=== PATIENT | male | born 1990 | race American Indian/Alaskan Native ===

== ENCOUNTER 2021-03-05 23:05 | Emergency (ER) | payer SELFPAY ==
[2021-03-06 00:58] LABS: Bilirubin,Urine NEG (Negative); Blood,Urine NEG (Negative); Color,Urine Yellow (Yellow); Mucus,Urine FEW /HPF; Protein,Urine <15 mg/dL mg/dL (Negative)
[2021-03-06] MEDS ORDERED: PHENAZOPYRIDINE 200 MG TAB PO ONE (02:49)
[2021-03-06] MEDS ORDERED: LIDOCAINE-MPF (1%) 10 MG/1 ML VIAL 5 ML INFILTRATI ONE (02:49)
--- NOTE | 2021-03-06 03:32 | Emergency Department Report ---
ED Male HPI - General Chief complaint: Urogenital-Male Stated complaint: PENILE DISCHARGE Source: patient Mode of arrival: Ambulatory Limitations: No Limitations - History of Present Illness Initial comments: Patient is a 30-year-old -[place] male with no past medical history presented to the ED with complaint of acute onset persistent dysuria, urinary frequency and urgency, and penile discharge for the last 3 days after having unprotected sexual intercourse 5 days ago. Patient states that he has 2 sexual partners. Patient denies dizziness, syncope, fever, chills, abdominal pain, hematuria, testicular pain, low back pain, chest pain or shortness of breath and sore throat. MD Complaint: penile discharge, dysuria -: Sudden, days(s) (2) Location: penis Radiation: none Severity: moderate Severity scale (0 -10): 6 Quality: aching, burning, sharp Consistency: intermittent Improves with: none Worsens with: urination denies other symptoms, discharge, dysuria. denies: swelling, mass, rash, urinary retention, blood in urine - Related Data Sexually active: Yes (Multiple sexual partners with no protection) Previous Rx's Medication Instructions Recorded Last Taken Type Doxycycline Hyclate 100 mg PO Q12H #28 capsule 03/06/21 Unknown Rx Phenazopyridine [Pyridium] 100 mg PO TID #21 tab 03/06/21 Unknown Rx Allergies Allergy/AdvReac Type Severity Reaction Status Date / Time Sulfa (Sulfonamide Allergy Unknown Verified 03/05/21 23:12 Antibiotics) ED Review of Systems ROS: Stated complaint: PENILE DISCHARGE Other details as noted in HPI Constitutional: denies: chills, fever Eyes: denies: eye pain, eye discharge, vision change ENT: denies: ear pain, throat pain Respiratory: denies: cough, shortness of breath, wheezing Cardiovascular: denies: chest pain, palpitations Endocrine: no symptoms reported Gastrointestinal: denies: abdominal pain, nausea, diarrhea Genitourinary: urgency, dysuria, discharge Musculoskeletal: denies: back pain, joint swelling, arthralgia Skin: denies: rash, lesions Neurological: denies: headache, weakness, paresthesias Psychiatric: denies: anxiety, depression Hematological/Lymphatic: denies: easy bleeding, easy bruising ED Past Medical Hx - Past Medical History Previous Medical History?: No - Surgical History Past Surgical History?: No - Medications Home Medications: Home Medications Medication Instructions Recorded Confirmed Last Taken Type Doxycycline Hyclate 100 mg PO Q12H #28 capsule 03/06/21 Unknown Rx Phenazopyridine [Pyridium] 100 mg PO TID #21 tab 03/06/21 Unknown Rx ED Physical Exam - General Limitations: No Limitations General appearance: alert, in no apparent distress - Head Head exam: Present: atraumatic, normocephalic, normal inspection - Eye Eye exam: Present: normal appearance, PERRL, EOMI Pupils: Present: normal accommodation - ENT ENT exam: Present: normal exam, normal orophraynx, mucous membranes moist, TM's normal bilaterally, normal external ear exam - Neck Neck exam: Present: normal inspection, full ROM - Respiratory Respiratory exam: Present: normal lung sounds bilaterally. Absent: respiratory distress, wheezes, rales, stridor, chest wall tenderness, accessory muscle use, prolonged expiratory - Cardiovascular Cardiovascular Exam: Present: regular rate, normal rhythm, normal heart sounds. Absent: systolic murmur, diastolic murmur, rubs, gallop - GI/Abdominal GI/Abdominal exam: Present: soft, normal bowel sounds. Absent: tenderness, guarding, rebound, hyperactive bowel sounds, organomegaly, mass - External exam: Present: other (Genital exam deferred, patient declined) - Extremities Exam Extremities exam: Present: normal inspection, full ROM, normal capillary refill - Back Exam Back exam: Present: normal inspection, full ROM. Absent: tenderness, CVA tenderness (R), CVA tenderness (L), muscle spasm, paraspinal tenderness, vertebral tenderness - Neurological Exam Neurological exam: Present: alert, oriented X3, CN II-XII intact, normal gait, reflexes normal - Psychiatric Psychiatric exam: Present: normal affect, normal mood - Skin Skin exam: Present: warm, dry, intact, normal color. Absent: rash ED Medical Decision Making - Medical Decision Making This is a 30-year-old -[place] male with no past medical history presented to the ED with complaint of acute onset persistent dysuria, urinary frequency and urgency, and penile discharge for the last 3 days after having unprotected sexual intercourse 5 days ago. Patient states that he has 2 sexual partners. In the ED, patient is alert and oriented x3 and is not in any distress. Urinalysis showed significant urinary tract infection consistent with STD, specifically gonorrhea and chlamydia. Patient was treated with Rocephin 1 g intramuscular injection empirically for suspected gonorrhea and was discharged home on doxycycline 100 mg every 12 hours for 14 days for suspected chlamydia. Patient was advised to follow-up with a [facility] department for further evaluation and STD testing including HIV and syphilis. Patient was also advised to observe safe sexual practices and to ensure that his sexual partners also get tested and treated. Patient was advised return to the ED immediately if symptoms get worse. - Differential Diagnosis STD; UTI; chlamydia; gonorrhea; Critical care attestation.: If time is entered above; I have spent that time in minutes in the direct care of this critically ill patient, excluding procedure time. ED Disposition Clinical Impression: Dysuria, STD (sexually transmitted disease), Acute gonococcal urethritis, Chlamydial urethritis in male, Acute urinary tract infection Disposition: HOME / SELF CARE / HOMELESS Is pt being admited?: No Does the pt Need Aspirin: No Condition: Stable Instructions: Gonococcal Urethritis (ED), Chlamydia, Male, Urethritis, Adult, Gonorrhea, Urinary Tract Infection, Adult, [id number] Additional Instructions: Urinalysis test shows UTI and suspected STD specifically gonorrhea and chlamydia. Therefore take medications as advised, drink plenty of fluids, observe safe sexual practices, follow-up with the [facility] for further evaluation and STD testing including HIV and syphilis. Ensure that your sexual partners get tested and treated for the same. Return to the ED immediately if symptoms get worse. Prescriptions: Doxycycline Hyclate 100 mg PO Q12H #28 capsule Phenazopyridine [Pyridium] 100 mg PO TID #21 tab Referrals: [facility] [Outside] - 3-5 Days Time of Disposition: 03:32 Print Language: FRISIAN
[2021-03-06 04:32] VITALS: BP 140/91
== END 2021-03-06 04:38 | disposition home or self-care (01) ==
LOC: ED 23:05
DX: A64 Unspecified sexually transmitted disease (principal); A56.01 Chlamydial cystitis and urethritis; A54.01 Gonococcal cystitis and urethritis, unspecified; N39.0 Urinary tract infection, site not specified; Z88.2 Allergy status to sulfonamides; Z79.899 Other long term (current) drug therapy
CPT/HCPCS: 81001; 96372; 99283; J0696; J3490

== ENCOUNTER 2021-11-22 09:57 | Emergency (ER) | payer SELFPAY ==
[2021-11-22 10:02] VITALS: BP 147/92
[2021-11-22] MEDS ORDERED: dexAMETHasone 20 MG/5 ML VIAL IM ONE (13:25)
[2021-11-22] MEDS ORDERED: LIDOCAINE-MPF (1%) 10 MG/1 ML VIAL 5 ML INFILTRATI ONE (13:25)
[2021-11-22] MEDS ORDERED: HYDROcodone/ACETAMINOPHEN 10-325MG TAB PO ONE (13:27)
--- NOTE | 2021-11-22 13:32 | Emergency Department Report ---
- General Chief Complaint: Headache Stated Complaint: SINUS ISSUES/HEADACHE Source: patient, family Mode of arrival: Ambulatory Limitations: No Limitations - History of Present Illness Initial Comments: 31-year-old male presents to the ED complaining headache, sinus pressure nasal congestion and a mild cough x2 days. Patient states that he has been taking [id number] NyQuil, Excedrin and multiple cold medication to relieve headache without mild relief. He states that headache is a current 8 out of 10. Patient mainly states that he feels Pressure to his forehead and his jaw area. He states that he feels better when he is laying down . Patient is alert and oriented x3. No acute distress noted. No ill appearance noted. MD Complaint: cough, sore throat, nasal congestion, sinus pain Onset/Timin -: days(s) Severity: mild, moderate Severity scale (0 -10): 4 Quality: aching Consistency: intermittent Improves With: OTC cold medicine Worsens With: nothing Context: animal exposure Associated Symptoms: denies other symptoms - Related Data Previous Rx's Medication Instructions Recorded Last Taken Type Doxycycline Hyclate 100 mg PO Q12H #28 capsule 03/06/21 Unknown Rx Phenazopyridine [Pyridium] 100 mg PO TID #21 tab 03/06/21 Unknown Rx Amoxicillin/K Clav Tab [Augmentin 1 tab PO Q12HR 10 Days #20 tab 11/22/21 Unknown Rx 875 mg] Fluticasone [Flonase] 1 spray NS QDAY 30 Days #1 bottle 11/22/21 Unknown Rx Ketorolac [Toradol] 10 mg PO Q6H PRN 5 Days #20 tab 11/22/21 Unknown Rx predniSONE [Deltasone] 50 mg PO QDAY 5 Days #5 tab 11/22/21 Unknown Rx Allergies Allergy/AdvReac Type Severity Reaction Status Date / Time Sulfa (Sulfonamide Allergy Unknown Verified 03/05/21 23:12 Antibiotics) ED Review of Systems ROS: Stated complaint: SINUS ISSUES/HEADACHE Other details as noted in HPI Constitutional: denies: chills, fever Eyes: denies: eye pain, eye discharge, vision change ENT: denies: ear pain, throat pain Respiratory: cough. denies: shortness of breath, wheezing Cardiovascular: denies: chest pain, palpitations Endocrine: no symptoms reported Gastrointestinal: denies: abdominal pain, nausea, diarrhea Genitourinary: denies: urgency, dysuria Musculoskeletal: denies: back pain, joint swelling, arthralgia Skin: denies: rash, lesions Neurological: denies: headache, weakness, paresthesias Psychiatric: denies: anxiety, depression Hematological/Lymphatic: denies: easy bleeding, easy bruising ED Past Medical Hx - Past Medical History Previous Medical History?: No - Surgical History Past Surgical History?: Yes - Social History Smoking Status: Never Smoker - Medications Home Medications: Home Medications Medication Instructions Recorded Confirmed Last Taken Type Doxycycline Hyclate 100 mg PO Q12H #28 capsule 03/06/21 Unknown Rx Phenazopyridine [Pyridium] 100 mg PO TID #21 tab 03/06/21 Unknown Rx Amoxicillin/K Clav Tab [Augmentin 1 tab PO Q12HR 10 Days #20 tab 11/22/21 Unknown Rx 875 mg] Fluticasone [Flonase] 1 spray NS QDAY 30 Days #1 bottle 11/22/21 Unknown Rx Ketorolac [Toradol] 10 mg PO Q6H PRN 5 Days #20 tab 11/22/21 Unknown Rx predniSONE [Deltasone] 50 mg PO QDAY 5 Days #5 tab 11/22/21 Unknown Rx ED Physical Exam - General Limitations: No Limitations General appearance: alert, in no apparent distress - Head Head exam: Present: atraumatic, normocephalic - Eye Eye exam: Present: normal appearance - ENT ENT exam: Present: mucous membranes moist - Expanded ENT Exam Expanded TM/Canal exam: Mastoid Tenderness: Right TM, Left TM (frontal and maxillary ) - Neck Neck exam: Present: normal inspection - Respiratory Respiratory exam: Present: normal lung sounds bilaterally. Absent: respiratory distress - Cardiovascular Cardiovascular Exam: Present: regular rate, normal rhythm. Absent: systolic murmur, diastolic murmur, rubs, gallop - GI/Abdominal GI/Abdominal exam: Present: soft, normal bowel sounds - Rectal Rectal exam: Present: deferred - Extremities Exam Extremities exam: Present: normal inspection - Back Exam Back exam: Present: normal inspection - Neurological Exam Neurological exam: Present: alert, oriented X3 - Psychiatric Psychiatric exam: Present: normal affect, normal mood - Skin Skin exam: Present: warm, dry, intact, normal color. Absent: rash ED Course Vital Signs 11/22/21 10:00 Temperature 98.4 F Pulse Rate 98 H Respiratory 20 Rate Blood Pressure 147/92 [Right] O2 Sat by Pulse 97 Oximetry ED Medical Decision Making - Medical Decision Making 31-year-old male presents to the ED complaining headache, sinus pressure nasal congestion and a mild cough x2 days. Patient states that he has been taking [id number] NyQuil, Excedrin and multiple cold medication to relieve heada kylie without mild relief. He states that headache is a current 8 out of 10. Patient mainly states that he feels Pressure to his forehead and his jaw area. He states that he feels better when he is laying down . Patient is alert and oriented x3. No acute distress noted. No ill appearance noted. Physical examination patient has tenderness to frontal and maxillary cavities upon palpation. Nasal turbulent swollen and erythematous. Postnasal drip noted. Patient given Rocephin 500 mg IM, Decadron 10 mg and hydrocodone 10 mg for pain. Rechecked the patient is resting quietly , comfortable and feeling better. I discussed the results of diagnostic study, my clinical impression and the plan for further treatment with the patient. Patient agrees with plan and discharge at this present time. All question addressed. I have given the patient instruction regarding a diagnosis ,expectation ,follow- up and return precaution. I explained to the patient that emergent condition may arise and to return to the ED for new worsen and any new persisting condition. I have explained the importance of following up with the primary care physician or referral physician listed below has instructed. The patient verbalized understanding of discharge instruction. Critical care attestation.: If time is entered above; I have spent that time in minutes in the direct care of this critically ill patient, excluding procedure time. ED Disposition Clinical Impression: Acute sinusitis Qualifiers: Sinusitis location: frontal Recurrence: non-recurrent Qualified Code(s): J01.10 - Acute frontal sinusitis, unspecified Disposition: 01 HOME / SELF CARE / HOMELESS Is pt being admited?: No Does the pt Need Aspirin: No Condition: Stable Instructions: Sinusitis, Adult, [id number] Additional Instructions: Take medication as prescribed Return the ED for any worsening symptom Prescriptions: Amoxicillin/K Clav Tab [Augmentin 875 mg] 1 tab PO Q12HR 10 Days #20 tab predniSONE [Deltasone] 50 mg PO QDAY 5 Days #5 tab Fluticasone [Flonase] 1 spray NS QDAY 30 Days #1 bottle Ketorolac [Toradol] 10 mg PO Q6H PRN 5 Days #20 tab PRN Reason: Pain Referrals: [facility] [Provider Group] - 3-5 Days Forms: Work/School Release Form(ED) Time of Disposition: 13:39
== END 2021-11-22 13:56 | disposition home or self-care (01) ==
LOC: ED 09:57
DX: J01.90 Acute sinusitis, unspecified (principal); Z88.1 Allergy status to other antibiotic agents
CPT/HCPCS: 96372; 99282; J0696; J1100; J3490

== ENCOUNTER 2021-11-27 20:09 | Emergency (ER) | payer SELFPAY ==
[2021-11-27 20:15] VITALS: BP 142/80
--- NOTE | 2021-11-28 03:44 | Cat Scan Report ---
CT head/brain wo con INDICATION / CLINICAL INFORMATION: headache. TECHNIQUE: Axial CT imaging of the brain was obtained without contrast. Coronal and sagittal reformatted imaging obtained and reviewed. All CT scans at this location are performed using CT dose reduction for ALAR A by means of automated exposure control. COMPARISON: None available. FINDINGS: No intracranial hemorrhage, mass or midline shift is noted. No extra-axial fluid collection or sugges tion of acute territorial infarction. Ventricular system and basilar cisterns are unremarkable. Visualized paranasal sinuses show complete opacification of the right maxillary antrum as well as sig nificant opacification of the ethmoid air cells bilaterally. Mucosal thickening also noted in the fro ntal sinuses. No calvarial abnormality. IMPRESSION: 1. Sinusitis. 2. Otherwise negative CT brain. Signer Name: Lucero Morton MD Signed: 11/28/2021 3:40 AM Workstation Name: [id number]
--- NOTE | 2021-11-28 03:48 | Cat Scan Report ---
CT facial bones wo con INDICATION / CLINICAL INFORMATION: FACIAL SWELLING. TECHNIQUE: Axial CT imaging of the facial bones/sinuses was obtained without contrast. Coronal and sagittal refo rmatted imaging obtained and reviewed. All CT scans at this location are performed using CT dose red uction for ALARA by means of automated exposure control. COMPARISON: None available. FINDINGS: There is significant sinusitis throughout the visualized paranasal sinuses. There is complete opacification of the right maxillary antrum with near complete opacification of the right ethmoid air cells. Air-fluid level is present with mucosal thickening throughout the right fro ntal sinus. There is mild mucosal thickening throughout the left maxillary antrum and significant opacification o f the anterior left ethmoid air cells. Air-fluid level with mucosal thickening is present throughout the left frontal sinus. Sphenoid sinuses are clear. No evidence of soft tissue abscess. Both orbits are intact. IMPRESSION: 1. Severe pansinusitis. This is the most severe within the right maxillary and ethmoid sinuses. Signer Name: Lucero Morton MD Signed: 11/28/2021 3:44 AM Workstation Name: [id number]
[2021-11-28] MEDS ORDERED: oxyCODONE /ACETAMINOPHEN 5-325MG TAB PO ONE (04:17)
[2021-11-28] MEDS ORDERED: KETOROLAC 60 MG/2 ML INJ IM ONE (04:17)
--- NOTE | 2021-11-28 05:38 | Emergency Department Report ---
ED ENT HPI - General Chief complaint: Headache Stated complaint: HEADACHES/SWOLLEN Time Seen by Provider: 11/28/21 04:17 Source: patient Mode of arrival: Ambulatory Limitations: No Limitations - History of Present Illness Initial comments: 31-year-old male presents emerged from a complaint of continued cyst sinus pressure and headaches despite taking the medications prescribed at the previous visit. He was seen here few days ago diagnosed with sinusitis and started taking antibiotics and pain medication reports continued pain and seeks further evaluation. Reports no nausea, no vomiting, no hemoptysis no hematemesis no odynophagia no dysphagia no chest pain no palpitations, no shortness of breath. -: Gradual (For 5 days) Location: nose (Nasal congestion bilateral) Quality: dull Consistency: constant Improves with: none Worsens with: none Associated Symptoms: denies: gum swelling, toothache, sore throat, tinnitus, discharge from ear, rhinorrhea - Related Data Previous Rx's Medication Instructions Recorded Last Taken Type Doxycycline Hyclate 100 mg PO Q12H #28 capsule 03/06/21 Unknown Rx Phenazopyridine [Pyridium] 100 mg PO TID #21 tab 03/06/21 Unknown Rx Amoxicillin/K Clav Tab [Augmentin 1 tab PO Q12HR 10 Days #20 tab 11/22/21 Unknown Rx 875 mg] Fluticasone [Flonase] 1 spray NS QDAY 30 Days #1 bottle 11/22/21 Unknown Rx Ketorolac [Toradol] 10 mg PO Q6H PRN 5 Days #20 tab 11/22/21 Unknown Rx predniSONE [Deltasone] 50 mg PO QDAY 5 Days #5 tab 11/22/21 Unknown Rx Acetaminophen/Codeine [Tylenol 1 tab PO Q6H PRN #20 tab 11/28/21 Unknown Rx /Codeine # 3 tab] Allergies Allergy/AdvReac Type Severity Reaction Status Date / Time Sulfa (Sulfonamide Allergy Unknown Verified 03/05/21 23:12 Antibiotics) ED Dental HPI - General Chief complaint: Headache Stated complaint: HEADACHES/SWOLLEN Time Seen by Provider: 11/28/21 04:17 Source: patient Mode of arrival: Ambulatory Limitations: No Limitations - Related Data Previous Rx's Medication Instructions Recorded Last Taken Type Doxycycline Hyclate 100 mg PO Q12H #28 capsule 03/06/21 Unknown Rx Phenazopyridine [Pyridium] 100 mg PO TID #21 tab 03/06/21 Unknown Rx Amoxicillin/K Clav Tab [Augmentin 1 tab PO Q12HR 10 Days #20 tab 11/22/21 Unknown Rx 875 mg] Fluticasone [Flonase] 1 spray NS QDAY 30 Days #1 bottle 11/22/21 Unknown Rx Ketorolac [Toradol] 10 mg PO Q6H PRN 5 Days #20 tab 11/22/21 Unknown Rx predniSONE [Deltasone] 50 mg PO QDAY 5 Days #5 tab 11/22/21 Unknown Rx Acetaminophen/Codeine [Tylenol 1 tab PO Q6H PRN #20 tab 11/28/21 Unknown Rx /Codeine # 3 tab] Allergies Allergy/AdvReac Type Severity Reaction Status Date / Time Sulfa (Sulfonamide Allergy Unknown Verified 03/05/21 23:12 Antibiotics) ED Review of Systems ROS: Stated complaint: HEADACHES/SWOLLEN Other details as noted in HPI Comment: All other systems reviewed and negative ED Past Medical Hx - Past Medical History Previous Medical History?: No - Surgical History Past Surgical History?: No - Social History Smoking Status: Unknown if ever smoked Substance Use Type: None - Medications Home Medications: Home Medications Medication Instructions Recorded Confirmed Last Taken Type Doxycycline Hyclate 100 mg PO Q12H #28 capsule 03/06/21 Unknown Rx Phenazopyridine [Pyridium] 100 mg PO TID #21 tab 03/06/21 Unknown Rx Amoxicillin/K Clav Tab [Augmentin 1 tab PO Q12HR 10 Days #20 tab 11/22/21 Unknown Rx 875 mg] Fluticasone [Flonase] 1 spray NS QDAY 30 Days #1 bottle 11/22/21 Unknown Rx Ketorolac [Toradol] 10 mg PO Q6H PRN 5 Days #20 tab 11/22/21 Unknown Rx predniSONE [Deltasone] 50 mg PO QDAY 5 Days #5 tab 11/22/21 Unknown Rx Acetaminophen/Codeine [Tylenol 1 tab PO Q6H PRN #20 tab 11/28/21 Unknown Rx /Codeine # 3 tab] ED Physical Exam - General Limitations: No Limitations General appearance: alert, in no apparent distress - Head Head exam: Present: atraumatic, normocephalic - Eye Eye exam: Present: normal appearance, PERRL, EOMI, periorbital swelling (Right side), other Pupils: Present: normal accommodation - ENT ENT exam: Present: mucous membranes moist, other (Sinus tenderness with percussion. Nasal congestion right greater than left. Postnasal drip is present. Ears are clear.) - Neck Neck exam: Present: normal inspection - Respiratory Respiratory exam: Present: normal lung sounds bilaterally. Absent: respiratory distress - Cardiovascular Cardiovascular Exam: Present: regular rate, normal rhythm. Absent: systolic murmur, diastolic murmur, rubs, gallop - GI/Abdominal GI/Abdominal exam: Present: soft, normal bowel sounds - Rectal Rectal exam: Present: deferred - Extremities Exam Extremities exam: Present: normal inspection, normal capillary refill - Back Exam Back exam: Present: normal inspection - Neurological Exam Neurological exam: Present: alert, oriented X3 - Psychiatric Psychiatric exam: Present: normal affect, normal mood - Skin Skin exam: Present: warm, dry, intact, normal color. Absent: rash ED Course Vital Signs 11/27/21 11/28/21 20:13 04:27 Temperature 98.8 F Pulse Rate 100 H Respiratory 20 16 Rate Blood Pressure 142/80 O2 Sat by Pulse 97 Oximetry Critical care attestation.: If time is entered above; I have spent that time in minutes in the direct care of this critically ill patient, excluding procedure time. ED Disposition Clinical Impression: Acute sinusitis, Periorbital swelling, Headache Disposition: 01 HOME / SELF CARE / HOMELESS Is pt being admited?: No Does the pt Need Aspirin: No Condition: Stable Instructions: Sinusitis, Adult, [id number], How to Perform a Sinus Rinse Prescriptions: Acetaminophen/Codeine [Tylenol /Codeine # 3 tab] 1 tab PO Q6H PRN #20 tab PRN Reason: sinus pain Referrals: ARELI BAIG MD [Primary Care Provider] - 3-5 Days
== END 2021-11-28 06:05 | disposition home or self-care (01) ==
LOC: ED 20:09
DX: J01.90 Acute sinusitis, unspecified (principal); H05.229 Edema of unspecified orbit; R51.9 Headache, unspecified; Z88.2 Allergy status to sulfonamides
CPT/HCPCS: 70450; 70486; 96372; 99283; J1885